=== PATIENT | male | born 1955 ===

== ENCOUNTER → 2024-01-25 | Outpatient (CLI) | payer OTHER | END | disposition home or self-care (01) | LOC: RADMN 09:03 | PROVIDERS: ATTEND Family Medicine | DX: S22.31XA Fracture of one rib, right side, initial encounter for closed fracture (principal); K80.20 Calculus of gallbladder without cholecystitis without obstruction; J43.2 Centrilobular emphysema; R91.1 Solitary pulmonary nodule; K44.9 Diaphragmatic hernia without obstruction or gangrene; X58.XXXA Exposure to other specified factors, initial encounter; Y93.89 Activity, other specified; Y92.89 Other specified places as the place of occurrence of the external cause; Y99.8 Other external cause status | CPT/HCPCS: 71250 ==